=== PATIENT | female | born 1970 ===

== ENCOUNTER → 2019-11-06 08:56 | Outpatient (CLI) | payer OTHER, SELFPAY ==
--- NOTE | ~2019-11-06 | XR_ITS ---
XR wrist RT min 3V 11/06/2019 09:11 Indication: Right wrist pain Procedure: 4 views right wrist Comparison: No prior studies for comparison. Findings: No fracture, subluxation or dislocation. No significant soft tissue abnormality. No radiopa que foreign bodies. 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 Impression: 1: No significant bone or joint abnormality. Reviewed, dictated and finalized at location B. Impression: 1: No significant bone or joint abnormality.
== END ==
PROVIDERS: PCP Family Medicine; Visit Provider Nurse Practitioner Family
DX: M25.539 Pain in unspecified wrist (principal)
CPT/HCPCS: 73110

== ENCOUNTER → 2020-01-06 10:57 | Outpatient (CLI) | payer OTHER, SELFPAY ==
--- NOTE | ~2020-01-06 | MR_ITS ---
EXAMINATION: MR wrist RT wo con DATE: 01/06/2020 11:52 INDICATION: A couple months of right wrist pain. TECHNIQUE: Magnetic resonance imaging (MRI) of the right wrist was performed without intravenous cont rast. Sequences performed include axial PD-weighted FSE and PD-weighted FS FSE, coronal PD-weighted F S FSE and T1-weighted SE, and sagittal PD-weighted FS FSE and PD-weighted FSE. COMPARISON: Right wrist radiographs dated 11/06/2019 FINDINGS: Intrinsic ligaments: The scapholunate and lunotriquetral ligaments are normal. Triangular fibrocartilage complex (TFCC): The triangular fibrocartilage including its foveal and styloid attachments as well as the dorsal and volar radioulnar ligaments are normal. The ulnar collateral ligament, ulnotriquetral ligament and men iscal homologue are normal. The extensor carpi ulnaris tendon sheath is normal. Extensor wrist: There is prominent fusiform thickening as well as increased signal of the extensor tendons in the fir st dorsal compartment at the level of the radial styloid process consistent with tendinopathy and pos sible longitudinal split tearing of what appears to be both the extensor pollicis brevis and abductor pollicis longus tendons. No discrete avulsion or partial thickness tear margin is appreciated. There is a small amount surrounding fluid signal consistent with mild associated tenosynovitis. The remain ing extensor tendons of the wrist are normal. Flexor wrist: The flexor tendons of the wrist are normal. No abnormality in the carpal tunnel with normal median n erve. Guyon's canal: Guyon's canal including the ulnar nerve and artery are normal. Bones/other: Normal marrow signal. No fracture, erosions, avascular necrosis or abnormal marrow replacing process. Joint spaces are normal with no focal cartilage defects appreciated. IMPRESSION: 1. De Quervain's tenosynovitis in the first dorsal compartment with associated moderate tendinopathy and possible low cancel longitudinal split tearing of both the extensor pollicis brevis and abductor pollicis longus tendons. Reviewed, dictated and finalized at location H. 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 De Quervain's tenosynovitis in the first dorsal compartment with associated moderate tendinopathy and possible low cancel longitudinal split tearing of bot h the extensor pollicis brevis and abductor pollicis longus tendons.
== END ==
PROVIDERS: PCP Family Medicine; Visit Provider Nurse Practitioner Family
DX: M65.4 Radial styloid tenosynovitis [de Quervain] (principal)
CPT/HCPCS: 73221

== ENCOUNTER → 2020-01-28 10:12 | Outpatient (CLI) | payer OTHER, SELFPAY ==
--- NOTE | ~2020-01-28 | MM_ITS ---
EXAMINATION: MM scrn estefany implant BI w antwon HISTORY: Screening mammogram TECHNIQUE: Craniocaudal and mediolateral oblique 3-D tomosynthesis images with implant displacement a nd synthetic 2-D images were generated. Craniocaudal and mediolateral oblique views of the breasts wi thout implant displacement were obtained using full field digital mammography. CAD analysis was submi tted and interpreted. COMPARISON: Comparison to multiple prior studies sequentially, with oldest reviewed study dated 06/07. BREAST PARENCHYMAL COMPOSITION: The breasts are heterogeneously dense, which may obscure small masses . FINDINGS: There is a focal asymmetry in the subareolar location of the left breast which is slightly more prominent than on prior studies. The right breast is stable without evidence for malignancy. IMPRESSION: 1. Subtle left breast asymmetry. 2. Additional mammographic views and possible breast ultrasound are recommended. BI-RADS Category 0: Incomplete: Needs additional imaging evaluation. Reviewed, dictated and finalized at location A. NG MANAGER IMPRESSION: 1. Subtle left breast asymmetry. 2. Additional mammographic views and possible breast ultrasound are recommended . BI-RADS Category 0: Incomplete: Needs additional imaging evaluation.
--- NOTE | ~2020-01-28 | DEXA_ITS ---
Bone Density Report Name: Donna Kam Age: 49 Sex: Female Ethnicity: White Date of : 1970 Indication: osteopenia; postmenopausal Referring Provider: JOSE, HIWOT Study: Bone densitometry was performed. Exam Date: January 28, 2020 Accession number: [id number] Bone Density: Region BMD T-score Z-score Classification AP Spine (L1-L4) 0.840 -1.9 -1.1 Osteopenia Femoral Neck (Left) 0.698 -1.4 -0.6 Osteopenia Total Hip (Left) 0.870 -0.6 -0.1 Normal Femoral Neck (Right) 0.751 -0.9 -0.1 Normal Total Hip (Right) 0.898 -0.4 0.1 Normal Total Hip Mean 0.884 -0.5 0.0 Normal World Health Organization criteria for BMD impression classify patients as: Normal (T-score at or above -1.0), Osteopenia (T-score between -1.0 and -2.5), or Osteoporosis (T-score at or below -2.5). 10-year Fracture Risk(1): Major Osteoporotic Fracture 4.2% Hip Fracture 0.3% Reported Risk Factors: [place] (), Neck BMD=0.698, BMI=22.1 (1) FRAX(R) Version 3.08. Fracture probability calculated for an untreated patient. Fracture probability may be lower if the patient has received treatment. Previous Exams: Region Exam Age BMD T-score BMD Change BMD Change Date g/cm2 vs Baseline vs Previous AP Spine(L1-L4) 01/28/2020 49 0.840 -1.9 -0.044* -0.031* 12/18/2017 47 0.872 -1.6 -0.013 -0.013 12/11/2015 45 0.885 -1.5 Total Hip(Left) 01/28/2020 49 0.870 -0.6 -0.040* -0.040* 12/18/2017 47 0.910 -0.3 -0.001 -0.001 12/11/2015 45 0.910 -0.3 Total Hip(Right) 01/28/2020 49 0.898 -0.4 -0.055* -0.029* 12/18/2017 47 0.927 -0.1 -0.026 -0.026 12/11/2015 45 0.953 0.1 *Denotes significance at 95% confidence level, LSC for AP Spine = 0.022 g/cm2, LSC for Total Hip = 0.027 g/cm2 Clinical Information Provided by Patient: Has used the following medications: Vitamin D, Calcium Patient maximum height was 63.75 Menopause Age: 43 Drinks caffeinated beverages Onset of menses at age 9 Number of children 2 Impression: The patient has low bone mass, based on the Total Spine T-score. The patient has an estimated ten-year risk of hip fracture of 0.3% and an estimated ten-year risk of major fracture of 4.2%, based on the WHO FRAX algorithm. The BMD for the AP Spine(L1-L4) decreased, changing by -0.031 since the last DXA exam. The BMD for the T
== END ==
PROVIDERS: PCP Family Medicine; Visit Provider Nurse Practitioner
DX: Z12.31 Encounter for screening mammogram for malignant neoplasm of breast (principal); R92.8 Other abnormal and inconclusive findings on diagnostic imaging of breast; M85.852 Other specified disorders of bone density and structure, left thigh
CPT/HCPCS: 77063; 77067; 77080

== ENCOUNTER → 2020-03-19 07:52 | Outpatient (CLI) | payer OTHER, SELFPAY ==
--- NOTE | ~2020-03-19 | MMUS_ITS ---
EXAMINATION: MM diag estefany implant LT w antwon, US breast LT limited HISTORY: Follow-up left breast asymmetry. TECHNIQUE: Additional 3-D tomosynthesis images of the left breast were performed and synthetic 2-D im ages were generated. CAD analysis was submitted and interpreted. High resolution limited left breast ultrasound was performed. COMPARISON: 01/28/2020 BREAST PARENCHYMAL COMPOSITION: The breasts are heterogenously dense, which may obscure small masses. FINDINGS: MAMMOGRAPHIC FINDINGS: There are no suspicious masses, calcifications or architectural distortion to suggest malignancy. ULTRASOUND: Limited left breast ultrasound: Normal heterogeneous echotexture without focal mass. Mildly prominent ducts. IMPRESSION: 1. No mammographic or sonographic evidence for malignancy in the left breast. 2. Routine yearly screening mammogram and regular clinical breast examination are recommended. BI-RADS Category 1: Negative Reviewed, dictated and finalized at location A. T FINISHER IMPRESSION: 1. No mammographic or sonographic evidence for malignancy in the left breast. 2. Routine yearly screening mammogram and regular clinical breast examination a re recommended. BI-RADS Category 1: Negative
== END ==
PROVIDERS: PCP Family Medicine; Visit Provider Obstetrics & Gynecology Gynecology
DX: R92.8 Other abnormal and inconclusive findings on diagnostic imaging of breast (principal)
CPT/HCPCS: 76642; 77061; 77065; G0279

== ENCOUNTER → 2022-05-31 09:56 | Outpatient (CLI) | payer OTHER, SELFPAY ==
--- NOTE | ~2022-05-31 | DEXA_ITS ---
Bone Density Report Name: TASHIA MURRAY Age: 51 Sex: Female Ethnicity: White Date of : 1970 Indication: osteopenia; rheumatoid arthritis; postmenopausal Referring Provider: JOSE, HIWOT Study: Bone densitometry was performed. Exam Date: May 31, 2022 Accession number: [id number] Bone Density: Region BMD T-score Z-score Classification AP Spine (L1-L4) 0.845 -1.8 -0.9 Osteopenia Femoral Neck (Left) 0.776 -0.7 0.3 Normal Total Hip (Left) 0.904 -0.3 0.3 Normal Femoral Neck (Right) 0.791 -0.5 0.4 Normal Total Hip (Right) 0.928 -0.1 0.5 Normal Total Hip Mean 0.916 -0.2 0.4 Normal World Health Organization criteria for BMD impression classify patients as: Normal (T-score at or above -1.0), Osteopenia (T-score between -1.0 and -2.5), or Osteoporosis (T-score at or below -2.5). 10-year Fracture Risk(1): Major Osteoporotic Fracture 5.7% Hip Fracture 0.2% Reported Risk Factors: [place] (), Neck BMD=0.776, BMI=22.2, rheumatoid arthritis (1) FRAX(R) Version 3.08. Fracture probability calculated for an untreated patient. Fracture probability may be lower if the patient has received treatment. Previous Exams: Region Exam Age BMD T-score BMD Change BMD Change Date g/cm2 vs Baseline vs Previous AP Spine(L1-L4) 05/31/2022 51 0.845 -1.8 -0.040* 0.004 01/28/2020 49 0.840 -1.9 -0.044* -0.031* 12/18/2017 47 0.872 -1.6 -0.013 -0.013 12/11/2015 45 0.885 -1.5 Total Hip(Left) 05/31/2022 51 0.904 -0.3 -0.006 0.034* 01/28/2020 49 0.870 -0.6 -0.040* -0.040* 12/18/2017 47 0.910 -0.3 -0.001 -0.001 12/11/2015 45 0.910 -0.3 Total Hip(Right) 05/31/2022 51 0.928 -0.1 -0.025 0.030* 01/28/2020 49 0.898 -0.4 -0.055* -0.029* 12/18/2017 47 0.927 -0.1 -0.026 -0.026 12/11/2015 45 0.953 0.1 *Denotes significance at 95% confidence level, LSC for AP Spine = 0.022 g/cm2, LSC for Total Hip = 0.027 g/cm2 Clinical Information Provided by Patient: Has rheumatoid arthritis Has used the following medications: HRT (i.e. estrogen/hormone therapy), Vitamin D, Calcium Patient maximum height was 63.75 Menopause Age: 43 Drinks caffeinated beverages Onset of menses at age 9 Number of children 2 Impression: The patient has low bone mass, ba
== END ==
PROVIDERS: PCP Nurse Practitioner; Visit Provider Nurse Practitioner
DX: M85.88 Other specified disorders of bone density and structure, other site (principal)
CPT/HCPCS: 77080